=== PATIENT | male | born 1940 | race Caucasian/White ===

== ENCOUNTER 2023-04-04 07:42 | Outpatient (CLI) | payer MEDICARE, OTHER | END 2023-04-04 07:43 | disposition home or self-care (01) | LOC: CSHMRI 07:42 | PROVIDERS: ATTEND Nurse Practitioner Family | DX: M51.16 Intervertebral disc disorders with radiculopathy, lumbar region (principal); M48.062 Spinal stenosis, lumbar region with neurogenic claudication; M47.816 Spondylosis without myelopathy or radiculopathy, lumbar region | CPT/HCPCS: 72148 ==